=== PATIENT | male | born 1950 | race Caucasian/White ===

== ENCOUNTER → 2017-08-12 12:13 | Outpatient (CLI) | payer MEDICARE, SELFPAY ==
[2017-08-12 12:45] LABS: Add Manual Diff / Slide Review NO; Basophils Percent Auto 1.3 % (0-2); Eosinophils Percent Auto 3.3 % (2-4); Hematocrit 40.3 % (41-53); Hemoglobin 13.6 g/dL (13.5-17.5); Lymphocytes Percent Auto 29.1 % (25-40); Mean Corpuscular HGB Conc 33.7 % (30-36); Mean Corpuscular Hemoglobin 27.3 PG (26-34); Monocytes Percent Auto 5.8 % (3-14); Neutrophils Absolute Auto 4800 /uL (3000-5900); Neutrophils Percent Auto 60.5 % (50-75); Platelet Count 368 X10^3/uL (150-400); Red Blood Cell Count 4.98 X10^6/uL (4.5-5.9); Red Cell Distribution Width 14.4 % (11.6-14.8); White Blood Cell Count 7.9 X10^3/uL (4.5-11.0)
[2017-08-12 13:07] LABS: Rheumatoid Factor < 8.6 IU/mL (<12.0)
[2017-08-12 13:33] LABS: Thyroid Stimulating Hormone 1.96 uIU/mL (0.47-4.68)
[2017-08-12 13:52] LABS: Vitamin B12 289 pg/mL (239-931)
[2017-08-14 11:00] LABS: HLA B27 POSITIVE (Negative)
== END ==
PROVIDERS: Family Provider Nurse Practitioner; Visit Provider Podiatrist
DX: E11.40 Type 2 diabetes mellitus with diabetic neuropathy, unspecified (principal); M19.90 Unspecified osteoarthritis, unspecified site
CPT/HCPCS: 36415; 82607; 84443; 85025; 86430; 86812

== ENCOUNTER 2017-09-30 19:07 | Emergency (ER) | payer MEDICARE, SELFPAY ==
[2017-09-30 19:12] VITALS: BP 147/76; PULSE 81; RESP 18; TEMP 36.8; O2SAT 98
--- NOTE | 2017-09-30 19:38 | ED_ITS ---
HPI - GI Bleed General Chief complaint: GI Bleed Stated complaint: BLOOD IN STOOLS PAIN ON LEFT SIDE LOWER ABD Time Seen by Provider: 09/30/17 19:38 Source: patient Mode of arrival: ambulatory Limitations: no limitations History of Present Illness HPI Narrative: The patient has a history of ulcerative colitis as well as diverticulitis. He developed left-sided abdominal pain 3-4 days ago. Today he developed lower GI bleeding, he had 1 large min prior to arrival here. He has ongoing left lower quadrant pain but no fever or chills. He has had no nausea or vomiting. He was initially assessed at the [facility] by Dr. Diallo. His CBC was relatively normal. He was sent here for additional evaluation for probable diverticulitis and/or lower GI bleed. The patient denies weakness or dizziness. His appetite has been normal. There has been no nausea vomiting with current symptoms. He was last treated for diverticulitis April 2017 with Cipro and Flagyl. He has had colonoscopy since then with no critical findings. Related Data Home Medications Medication Instructions Recorded Confirmed CPAP: CPAP/PAP Full Face Mask #0 01/06/16 glimepiride 2 mg PO QDAY #0 07/10/16 mesalamine [Canasa] SEE INSTRUCTIONS #0 07/10/16 Previous Rx's Medication Instructions Recorded Syringes: Ultra Fine Insulin 0 syr SQ BID #100 ea 11/26/15 Syringe w/Needle CPAP: CPAP/PAP Full Face Mask dev #1 01/06/16 insulin glargine [Lantus U-100 64 unit SQ HS #1 vial 07/13/16 Insulin] mesalamine [Lialda] 1.2 gm PO SEE INSTRUCTIONS #360 tab 07/13/16 pantoprazole 40 mg PO BID #180 tab 08/31/16 hydrochlorothiazide 12.5 mg PO QDAY #90 cap 09/07/16 metformin 0 PO QDAY #225 tab 09/14/16 metoprolol succinate 50 mg PO Q DAY #90 tab 09/30/16 amlodipine 10 mg PO QAM #90 tab 10/12/16 losartan 50 mg PO BID #180 tab 10/12/16 amoxicillin-pot clavulanate 1 tab PO BID #20 tab 09/30/17 [Augmentin] Allergies Allergy/AdvReac Type Severity Reaction Status Date / Time No Known Allergies Allergy Uncoded 09/30/17 19:16 Review of Systems Review of Systems All systems reviewed & are unremarkable except as noted in HPI and below Constitutional Reports as per HPI, Denies chills, Denies fever(s), Denies lethargy and Denies weakness ENT Ears, Nose, Mouth, and Throat: Denies dizziness Cardiovascular Denies chest pain, Denies lightheadedness, Denies palpitations and Denies dyspnea Respiratory Denies cough and Denies dyspnea Gastrointestinal Gastrointestinal: Reports abdominal pain, Reports change in bowel habits, Reports diarrhea, Denies nausea, Denies hematemesis and Reports other (Lower GI bleeding as noted in HPI.) Genitourinary Reports other (No urinary changes.) Musculoskeletal Denies back pain and Denies muscle weakness Integumentary/Breasts Denies pruritus, Denies erythema, Denies rash and Denies wounds Neurologic Denies confusion, Denies dizziness and Denies weakness Psychiatric Denies confusion Endocrine Denies palpitations Hematologic/Lymphatic Denies easy bleeding PFSH Medical History Diverticulitis (Acute) Ulcerative colitis (Acute) Surgical History History of tonsillectomy Family History Brother Age: 69 Heart disease Brother Age: 60 Amputated toe Diabetes mellitus Mother Age: 90 Diabetes mellitus Heart disease Hypertension Social History Smoking Status: Never smoker Exam Initial Vital Signs Initial Vital Signs: Vital Signs Temperature 98.2 F 09/30/17 19:12 Pulse Rate 81 09/30/17 19:12 Respiratory Rate 18 09/30/17 19:12 Blood Pressure 147/76 H 09/30/17 19:12 Pulse Oximetry 98 09/30/17 19:12 Const General: cooperative and well developed Nutritional Appearance: well nourished Orientation: alert, awake, oriented x3 and not confused [facility] Head: normocephalic and atraumatic Nose: external nose normal Mouth: oral mucosae normal, lip normal and moist mucous membranes Throat: posterior oropharynx normal Chest Chest: normal inspection of the chest Resp Effort & Inspection: normal respiratory effort, able to speak in complete sentences, no respiratory distress and no use of accessory muscles Auscultation: clear to auscultation bilaterally, no rales, no rhonchi and no wheezes Cardio Rate: regular rate Rhythm: regular rhythm Heart Sounds: no click, no gallops, no murmurs and no rubs Pulses: normal peripheral pulses GI Inspection: normal to inspection and non-distended Palpation: soft, no hepatosplenomegaly, No pulsatile mass and tender (Tender in the left lower quadrant without guarding, distension or rebound.) Percussion: normal to percussion Auscultation: normal bowel sounds Back/Spine/Pelvis Back: No CVA tenderness Skin General: no rashes or lesions noted, No jaundice and No petechiae Neuro General: alert, oriented x3 and no focal motor deficits Extrem General: no pedal edema and no calf tenderness Course Orders Ordered: ED Orders 09/30/17 20:05 CT abdomen pelvis w con Stat 09/30/17 20:10 Complete Blood Count AUTO DIFF Stat Comprehensive Metabolic Panel Stat Partial Thromboplastin Time Stat Prothrombin Time INR Stat 09/30/17 20:30 Lactate (Lactic Acid) Stat Type and Screen Stat Discontinued Medications Sodium Chloride (Normal Saline 0.9%) 1,000 mls @ 150 mls/hr IV CONT DL Last Infusion: 10/01/17 00:04 Dose: 0 mls/hr Admin: 09/30/17 20:34 Dose: 150 mls/hr Ampicillin Sodium/Sulbactam (Sodium 3 gm/ Sodium Chloride) 100 mls @ 100 mls/ hr IV NOW ONE Stop: 09/30/17 22:10 Last Infusion: 09/30/17 23:38 Dose: 0 mls/hr Admin: 09/30/17 22:33 Dose: 100 mls/hr Ondansetron HCl (Zofran) 4 mg IV NOW ONE Stop: 09/30/17 19:40 Last Admin: 09/30/17 20:34 Dose: 4 mg Pantoprazole Sodium (Protonix) 40 mg IV NOW ONE Stop: 09/30/17 19:40 Last Admin: 09/30/17 20:34 Dose: 40 mg Vital Signs - 8 hr 09/30/17 20:37 09/30/17 22:41 Pulse Rate 74 70 Respiratory Rate 18 17 Blood Pressure [Right Arm] 151/84 H 137/81 H Pulse Oximetry 99 97 MDM - GI Bleed Medical Records Attestation: I reviewed the patient's medical records. Lab Data Attestation: I reviewed the patient's lab results. CT confirms diverticulitis. The patient's pain is [id number], he is afebrile with a normal WBC. His CBC is stable, his blood loss is not clinically significant at this point. He will be treated with Unasyn and discharged on Augmentin. Result diagrams: 09/30/17 20:10 09/30/17 20:10 Lab Results 09/30/17 09/30/17 09/30/17 Range/Units 20:10 20:10 20:10 WBC 9.3 (4.5-11.0) X10^3/uL RBC 4.79 (4.5-5.9) X10^6/uL Hgb 13.2 L (13.5-17.5) g/dL Hct 39.5 L (41-53) % MCV 82.6 (80-100) fL MCH 27.6 (26-34) PG MCHC 33.4 (30-36) % RDW 14.7 (11.6-14.8) % Plt Count 341 (150-400) X10^3/uL Neut % (Auto) 71.2 (50-75) % Lymph % (Auto) 20.4 L (25-40) % Larue % (Auto) 5.3 (3-14) % Eos % (Auto) 2.3 (2-4) % Baso % (Auto) 0.8 (0-2) % Neut # (Auto) 6600 H (6928-6998) /uL PT 10.7 (10.1-12.7) SECONDS INR 1.0 (0.9-1.3) APTT 40 H (26.4-36.2) SECONDS Sodium 137 (137-145) mmol/L Potassium 4.5 (3.4-5.1) mmol/L Chloride 98 (98-107) mmol/L Carbon Dioxide 24 (22-32) mmol/L BUN 19 (9-20) mg/dL Creatinine 1.10 (0.66-1.25) mg/dL Estimated GFR > 60.0 (>60) mL/min BUN/Creatinine Ratio 17.3 (6-22) Glucose 264 H (80-110) mg/dL Lactate (0.7-2.1) mmol/L Calcium 9.5 (8.4-10.2) mg/dL Total Bilirubin 0.4 (0.2-1.3) mg/dL AST 30 (17-59) IU/L ALT 46 (21-72) IU/L Alkaline Phosphatase 70 (38-126) U/L Total Protein 7.9 (6.3-8.2) g/dL Albumin 4.3 (3.5-5.0) g/dL Globulin 3.6 (1.7-4.1) g/dL Albumin/Globulin Ratio 1.2 (1.0-2.8) Blood Type Antibody Screen 09/30/17 09/30/17 Range/Units 20:30 20:30 WBC (4.5-11.0) X10^3/uL RBC (4.5-5.9) X10^6/uL Hgb (13.5-17.5) g/dL Hct (41-53) % MCV (80-100) fL MCH (26-34) PG MCHC (30-36) % RDW (11.6-14.8) % Plt Count (150-400) X10^3/uL Neut % (Auto) (50-75) % Lymph % (Auto) (25-40) % Larue % (Auto) (3-14) % Eos % (Auto) (2-4) % Baso % (Auto) (0-2) % Neut # (Auto) (2418-0075) /uL PT (10.1-12.7) SECONDS INR (0.9-1.3) APTT (26.4-36.2) SECONDS Sodium (137-145) mmol/L Potassium (3.4-5.1) mmol/L Chloride (98-107) mmol/L Carbon Dioxide (22-32) mmol/L BUN (9-20) mg/dL Creatinine (0.66-1.25) mg/dL Estimated GFR (>60) mL/min BUN/Creatinine Ratio (6-22) Glucose (80-110) mg/dL Lactate 3.0 H (0.7-2.1) mmol/L Calcium (8.4-10.2) mg/dL Total Bilirubin (0.2-1.3) mg/dL AST (17-59) IU/L ALT (21-72) IU/L Alkaline Phosphatase (38-126) U/L Total Protein (6.3-8.2) g/dL Albumin (3.5-5.0) g/dL Globulin (1.7-4.1) g/dL Albumin/Globulin Ratio (1.0-2.8) Blood Type O Negative Antibody Screen Negative Discharge Plan Departure Patient Disposition: Home, Self-Care Clinical Impression: Diverticulitis, Acute lower gastrointestinal bleeding Discharge Date/Time: 10/01/17 00:05 Interventions: ED Discharge Assessment Last Done: 10/01/17 00:05 Instructions: DI for Diverticulitis Activity Restrictions/Additional Instructions: Augmentin 2 times daily for 10 days. Drink plenty of fluids, I would recommend a very bland diet for the next few days until your feeling better. Tolerate a little bleeding, but if bleeding is significant you should return for another evaluation. You have to use your judgment. Recheck with your doctor in about 2 weeks. Prescriptions: New amoxicillin-pot clavulanate [Augmentin] 875-125 mg tablet 1 tab PO BID Qty: 20 RF: 0 No Action Syringes: Ultra Fine Insulin Syringe w/Needle SQ BID Qty: 100 RF: 11 CPAP: CPAP/PAP Full Face Mask Qty: 0 RF: 0 CPAP: CPAP/PAP Full Face Mask Qty: 1 RF: 0 glimepiride 2 MG tablet 2 mg PO QDAY Qty: 0 RF: 0 mesalamine [Canasa] 1,000 MG suppository SEE INSTRUCTIONS Qty: 0 RF: 0 insulin glargine [Lantus U-100 Insulin] 100 UNIT/1 ML solution 64 unit SQ HS Qty: 1 RF: PRN mesalamine [Lialda] 1.2 GM tablet,delayed release (DR/EC) 1.2 gm PO SEE INSTRUCTIONS Qty: 360 RF: 3 pantoprazole 40 MG tablet,delayed release (DR/EC) 40 mg PO BID Qty: 180 RF: 3 hydrochlorothiazide 12.5 MG capsule 12.5 mg PO QDAY Qty: 90 RF: 3 metformin 1,000 MG tablet PO QDAY Qty: 225 RF: 0 metoprolol succinate 50 MG tablet extended release 24 hr 50 mg PO Q DAY Qty: 90 RF: 3 losartan 50 MG tablet 50 mg PO BID Qty: 180 RF: 1 amlodipine 10 MG tablet 10 mg PO QAM Qty: 90 RF: 3
--- NOTE | 2017-09-30 20:05 | DI.CT.S_ITS ---
PROCEDURE: CT ABDOMEN PELVIS W CON INDICATIONS: LLQ pain. GI bleed TECHNIQUE: After the administration of oral and intravenous contrast, 5 mm thick sections acquired from the diaphragms to the symphysis. 5 mm thick coronal and sagittal reformats were performed. For radiation dose reduction, the following was used: automated exposure control, adjustment of mA and/or kV according to patient size. COMPARISON: None. FINDINGS: Image quality: Excellent. ABDOMEN: Lung bases: Lung bases are clear of acute opacities. 7 mm subpleural nodule noted in the right lower lobe. 5 mm subpleural nodule noted in the left lower lobe. Heart size is normal. Atherosclerotic calcifications noted in the visualized coronary vasculature. Solid organs: Liver is normal in size and enhancement. Diffuse fatty infiltration of the liver. Punctate calcification noted in the right lobe compatible sequela prior granulomatous disease. Gallbladder is contracted, but within normal limits.. Biliary system is non-dilated. Pancreas enhances normally. Spleen is normal in size and enhancement. No adrenal nodules. Kidneys are normal in size and enhancement, without hydronephrosis. 1.8 cm left renal cyst. Peritoneum and bowel: Small hernia noted. Stomach, small bowel, and colon loops are normal in caliber and wall thickness. Numerous diverticuli are scattered throughout colon. Mild inflammatory changes noted adjacent to the distal left colon and region of diverticuli compatible with diverticulitis. No peridiverticular abscess or free air. Trace free fluid noted in the left paracolic gutter. No free air. The appendix is normal. Nodes and vessels: No retroperitoneal or mesenteric adenopathy. Aorta and inferior vena cava are normal in caliber. Scattered atherosclerotic calcifications are noted in the abdominal and pelvic vasculature. Miscellaneous: No ventral hernias. PELVIS: Genitourinary: Bladder wall thickness is normal. Miscellaneous: No inguinal adenopathy. Small bilateral fat containing inguinal hernias. Bones: No suspicious bony lesions. No vertebral body compression fractures. Spine degenerative disease and facet arthropathy noted. IMPRESSION: 1. Findings consistent with uncomplicated left colon diverticulitis. 2. The appendix is normal. 3. Hepatic steatosis. 4. Atherosclerosis including the visualized coronary vasculature. 5. Bilateral lung nodules. The largest nodule measures 7 mm. Recommend followup imaging based on criteria outlined below. Fleischner Society criteria for SOLID lung nodule followup. Nodule size (mm)Low-risk patientHigh-risk patient?4No follow-up neededFollow-up at 12 mo; if no change, no further follow-up>[id number] CT at 12 mo; if no change, no further follow-up needed.Initial follow-up CT at 6-12 mo, then 18-24 mo if no change. >6-8Initial follow-up CT at 6-12 mo, then 18-24 mo if no change. Initial follow-up CT at 3-6 mo, then 9-12 mo and 24 mo if no change. >8Follow-up CT at 3, 9, 24 mo. Or PET and/or biopsy.Same as for low-risk pts. Dictated by: Anabel Herzog MD, PhD on 09/30/2017 at 21:58 Approved by: Anabel Herzog MD, PhD on 09/30/2017 at 22:05
[2017-09-30 20:21] LABS: Add Manual Diff / Slide Review NO; Basophils Percent Auto 0.8 % (0-2); Eosinophils Percent Auto 2.3 % (2-4); Hematocrit 39.5 % (41-53); Hemoglobin 13.2 g/dL (13.5-17.5); Lymphocytes Percent Auto 20.4 % (25-40); Mean Corpuscular HGB Conc 33.4 % (30-36); Mean Corpuscular Hemoglobin 27.6 PG (26-34); Mean Corpuscular Volume 82.6 fL (80-100); Monocytes Percent Auto 5.3 % (3-14); Neutrophils Absolute Auto 6600 /uL (3000-5900); Neutrophils Percent Auto 71.2 % (50-75); Platelet Count 341 X10^3/uL (150-400); Red Blood Cell Count 4.79 X10^6/uL (4.5-5.9); Red Cell Distribution Width 14.7 % (11.6-14.8); White Blood Cell Count 9.3 X10^3/uL (4.5-11.0)
[2017-09-30 20:27] LABS: Prothrombin Time 10.7 SECONDS (10.1-12.7)
[2017-09-30 20:29] LABS: PTT Partial Thromboplastin Tim 40 SECONDS (26.4-36.2)
[2017-09-30 20:34] LABS: Alanine Aminotransferase 46 IU/L (21-72); Albumin 4.3 g/dL (3.5-5.0); Albumin Globulin Ratio 1.2 (1.0-2.8); Alkaline Phosphatase 70 U/L (38-126); Aspartate Aminotransferase 30 IU/L (17-59); BUN Creatinine Ratio 17.3 (6-22); Bilirubin Total 0.4 mg/dL (0.2-1.3); Blood Urea Nitrogen 19 mg/dL (9-20); Calcium 9.5 mg/dL (8.4-10.2); Carbon Dioxide 24 mmol/L (22-32); Chloride 98 mmol/L (98-107); Estimated Glomerular Filt Rate > 60.0 mL/min (>60); Globulin 3.6 g/dL (1.7-4.1); Glucose 264 mg/dL (80-110); HEMOLYSIS 19 (0-50); Potassium 4.5 mmol/L (3.4-5.1); Sodium 137 mmol/L (137-145); Total Protein 7.9 g/dL (6.3-8.2)
[2017-09-30] MEDS: SODIUM CHLORIDE 0.9% 1,000 ML 150 ML IV (20:34)
[2017-09-30] MEDS: ONDANSETRON 4 MG/2 ML INJ IV (20:34)
[2017-09-30] MEDS: PANTOPRAZOLE 40 MG VIAL IV (20:34)
[2017-09-30 20:37] VITALS: BP 151/84; PULSE 74; RESP 18; O2SAT 99
[2017-09-30] MEDS: AMPICILLIN/SULBACTAM 3 GM 3 GM in SODIUM CHLORIDE 0.9% 100 ML IV (22:33)
[2017-09-30 22:41] VITALS: BP 137/81; PULSE 70; RESP 17; O2SAT 97
[2017-10-01 00:38] LABS: Reflexed Lactate in 2 Hours Y
== END 2017-10-01 00:05 | disposition home or self-care (01) ==
PROVIDERS: Emergency Provider Emergency Medicine; Family Provider Nurse Practitioner
DX: K57.92 Diverticulitis of intestine, part unspecified, without perforation or abscess without bleeding (principal); K92.2 Gastrointestinal hemorrhage, unspecified
CPT/HCPCS: 36591; 74177; 80053; 83605; 85025; 85610; 85730; 86850; 86900; 86901; 96361; 96365; 96375; 99283; 99285; C9113; J0295; J2405; Q9967

== ENCOUNTER → 2018-04-13 10:35 | Outpatient (CLI) | payer MEDICARE, SELFPAY ==
[2018-04-13 11:44] LABS: BUN Creatinine Ratio 13.1 (6-22); Blood Urea Nitrogen 17 mg/dL (9-20); Calcium 9.7 mg/dL (8.4-10.2); Carbon Dioxide 24 mmol/L (22-32); Chloride 99 mmol/L (98-107); Estimated Glomerular Filt Rate 54.9 mL/min (>60); Glucose 224 mg/dL (80-110); HEMOLYSIS < 15 (0-50); Potassium 4.1 mmol/L (3.4-5.1); Sodium 137 mmol/L (137-145)
== END ==
PROVIDERS: Family Provider Nurse Practitioner; PCP Nurse Practitioner; Visit Provider Nurse Practitioner
DX: E11.42 Type 2 diabetes mellitus with diabetic polyneuropathy (principal); Z79.4 Long term (current) use of insulin
CPT/HCPCS: 36415; 80048

== ENCOUNTER 2018-06-01 14:16 | Emergency (ER) | payer MEDICARE, SELFPAY ==
[2018-06-01 14:20] VITALS: BP 152/79; PULSE 58; RESP 16; TEMP 36.9; O2SAT 100
--- NOTE | 2018-06-01 15:54 | ED_ITS ---
HPI - Back Pain/Injury <Lucina Mgcraw PA-C - Last Filed: 06/01/18 21:48> General Chief Complaint: Back Pain/Injury Stated Complaint: pinched nerve in lower back Time Seen by Provider: 06/01/18 15:36 Source: patient Mode of arrival: ambulatory Limitations: no limitations History of Present Illness HPI Narrative: This 67-year-old male with a history of chronic intermittent back pain for 25 years comes in today after acute worsening yesterday. He states that he bent with his arm behind him to use a suppository and pain abruptly worsened, was unable to straighten up, pull up his pants, walk or sit due to not being able to lower himself. [place] he was given a dose of Demerol. He states this did help. He states that pain was severe again this morning. He had to call the ENT is again and was given another dose of Demerol (he is sure this was not Dilaudid), and states that this helped somewhat. He was seen at the clinic, and states they did not do any treatment there, felt he might need imaging. He states he thinks his back pain has gradually been worse for about a month, but denies any new trauma. He states this pain is different in that he has chronic sciatica which can affect either or both legs, however this is more localized in the right posterior hip. He denies any acute weakness in the extremities. He d enies any paresthesia. He denies any inability to urinate or bowel habit changes. No new fever or other new symptoms such as rash. He notes that he did have a shingles vaccine a week ago. Related Data Home Medications Medication Instructions Recorded Confirmed mesalamine [Canasa] 1,000 mg GA BEDTIME #0 07/10/16 06/01/18 CPAP: CPAP/PAP Full Face Mask 1 dev MISCELLANEOUS DIRECTED 06/01/18 06/01/18 Cbd 1 dose MISCELLANEOUS BEDTIME 06/01/18 06/01/18 Lantus U-100 Insulin 74 unit SQ BEDTIME 06/01/18 06/01/18 amlodipine 10 mg PO DAILY 06/01/18 06/01/18 cholecalciferol (vitamin D3) 1,000 unit PO BID 06/01/18 06/01/18 [Vitamin D3] cinnamon bark [Cinnamon] 1,000 mg PO BID 06/01/18 06/01/18 glimepiride 4 mg PO DAILY 06/01/18 06/01/18 hydrochlorothiazide 12.5 mg PO DAILY 06/01/18 06/01/18 insulin lispro [Humalog KwikPen 1 dose SUBCUT TIDWM 06/01/18 06/01/18 Insulin] mesalamine 4.8 g PO QAM 06/01/18 06/01/18 metformin 1,000 mg PO QAM 06/01/18 06/01/18 metformin 500 mg PO QPM 06/01/18 06/01/18 metoclopramide HCl 10 mg PO PRN PRN 06/01/18 06/01/18 metoprolol succinate 50 mg PO DAILY 06/01/18 06/01/18 sildenafil [Viagra] 100 mg PO DAILY PRN MDD 1 06/01/18 06/01/18 Previous Rx's Medication Instructions Recorded Syringes: Ultra Fine Insulin 0 syr SQ BID #100 ea 11/26/15 Syringe w/Needle pantoprazole 40 mg PO BID #180 tab 08/31/16 losartan 50 mg PO BID #180 tab 10/12/16 cyclobenzaprine 10 mg PO Q8H PRN #10 tab 06/01/18 hydrocodone-acetaminophen [[place]] 1 tab PO Q4-6H PRN #10 tab 06/01/18 Allergies Allergy/AdvReac Type Severity Reaction Status Date / Time No Known Allergies Allergy Uncoded 09/30/17 19:16 Review of Systems <Lucina Mcgraw PA-C - Last Filed: 06/01/18 21:48> Review of Systems ROS Unobtainable: All systems reviewed & are unremarkable except as noted in HPI and below PFSH <Lucina Mcgraw PA-C - Last Filed: 06/01/18 21:48> Medical History Diverticulitis (Acute) 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) Diabetes mellitus, insulin-dependent (IDDM or type I) (Chronic) GERD (gastroesophageal reflux disease) (Chronic) HTN (hypertension) (Chronic) Migraines (Chronic) No pertinent family history (Chronic) INES (obstructive sleep apnea) (Chronic) Ulcerative colitis (Chronic) Surgical History No pertinent past surgical history (Chronic) History of tonsillectomy (Resolved) Family History Brother Age: 69 Heart disease Brother Age: 60 Amputated toe Diabetes mellitus Mother Age: 90 Diabetes mellitus Heart disease Hypertension Social History Smoking Status: Never smoker Social History Smoking Status: Never smoker Exam <Lucina Mcgraw PA-C - Last Filed: 06/01/18 21:48> Narrative Exam Narrative: GENERAL APPEARANCE: Patient sitting comfortably, in no distress. PULMONARY: Lungs clear to auscultation bilaterally CV: Regular rhythm regular without murmur, normal S1 and S2, no S3 or S4 MUSCULOSKELETAL: No point tenderness over the lumbar spine. No tenderness over the lower lumbar musculature. Moderate tenderness over the right SI joint. No tenderness over the lateral hip. able to move from supine to sit . Lower extremity strength 5/5 bilateral hip flexors, knee extensors, foot plantar flexion. Negative modified straight leg raise . Negative Amari's test. NEUROLOGIC: Bilateral patellar and Achilles DTRs 2+ DERM: No exanthem Initial Vital Signs Initial Vital Signs: Vital Signs Temperature 98.5 F 06/01/18 14:20 Pulse Rate 58 L 06/01/18 14:20 Respiratory Rate 16 06/01/18 14:20 Blood Pressure 152/79 H 06/01/18 14:20 Pulse Oximetry 100 06/01/18 14:20 <Beau Turpin DO - Last Filed: 06/02/18 07:04> Initial Vital Signs Initial Vital Signs: Vital Signs Temperature 98.5 F 06/01/18 14:20 Pulse Rate 58 L 06/01/18 14:20 Respiratory Rate 16 06/01/18 14:20 Blood Pressure 152/79 H 06/01/18 14:20 Pulse Oximetry 100 06/01/18 14:20 Course <Lucina Mcgraw PA-C - Last Filed: 06/01/18 21:48> Orders Ordered: Discontinued Medications Cyclobenzaprine HCl (Flexeril) 10 mg PO NOW ONE Stop: 06/01/18 16:23 Last Admin: 06/01/18 16:38 Dose: 10 mg Vital Signs - 8 hr 06/01/18 14:20 06/01/18 16:08 06/01/18 17:38 Temperature 98.5 F Pulse Rate 58 L 68 65 Respiratory Rate 16 18 18 Blood Pressure 152/79 H Blood Pressure [Right Arm] 154/71 H 113/63 Pulse Oximetry 100 98 95 06/01/18 17:53 Temperature 98.4 F Pulse Rate 68 Respiratory Rate 17 Blood Pressure 113/63 Blood Pressure [Right Arm] Pulse Oximetry 97 <Beau Turpin DO - Last Filed: 06/02/18 07:04> Orders Ordered: Discontinued Medications Cyclobenzaprine HCl (Flexeril) 10 mg PO NOW ONE Stop: 06/01/18 16:23 Last Admin: 06/01/18 16:38 Dose: 10 mg Vital Signs - 8 hr 06/01/18 14:20 06/01/18 16:08 06/01/18 17:38 Temperature 98.5 F Pulse Rate 58 L 68 65 Respiratory Rate 16 18 18 Blood Pressure 152/79 H Blood Pressure [Right Arm] 154/71 H 113/63 Pulse Oximetry 100 98 95 06/01/18 17:53 Temperature 98.4 F Pulse Rate 68 Respiratory Rate 17 Blood Pressure 113/63 Blood Pressure [Right Arm] Pulse Oximetry 97 MDM - Back Pain/Injury <Lucina Mcgraw PA-C - Last Filed: 06/01/18 21:48> Imaging Data hip: Radiologist's impression: Chart Viewer Diagnostics DATE TYPE STATUS AUTHOR Hx 06/01/18 16:22 Vita Angelo 06/01/18 16:22 Vita nAgelo 09/30/17 20:05 Anabel Herzog Michael E 67, M0 1950 REG ER, ED.LOC - Main ED: R08 102.058kg Back Pain/Injury Search Chart NF - Not included in interaction checking ONSET 02/05/15 02/05/15 02/05/15 Today 16:08 Beau Waldrop 67 M [address] [address] XRay Report Signed Patient: Beau Waldrop EMR#: [id number] : 1950Acct:[id number] Age/Sex: 67 / MDate of Service: 06/01/18 Loc: ED Accession Number: [id number] Procedure: XR hip w pel if done RT 2V Ordering Provider: Lucina Mcgraw P.A-C PROCEDURE: XR HIP W PEL IF DONE RT 2V INDICATIONS: R. SI pain TECHNIQUE: AP pelvis with lateral view(s) of the right hip(s). COMPARISON: None. FINDINGS: Bones: Mild periarticular osteophyte formation at the bilateral hip joints. No fracture. Right sacroiliac joint demonstrates subchondral sclerosis and is ill-defined. Soft tissues: The visualized bowel gas pattern is normal. No suspicious soft tissue calcifications. IMPRESSION: 1. Right-sided sacroiliitis. 2. Mild bilateral hip osteoarthritis. Dictated by: Vita Angelo M.D. on 06/01/2018 at 16:53 Approved by: Vita Angelo M.D. on 06/01/2018 at 16:54 lumbar: Radiologist's impression: Chart Viewer Diagnostics DATE TYPE STATUS AUTHOR Hx 06/01/18 16:22 Vita Angelo 06/01/18 16:22 Vita Angelo 09/30/17 20:05 Anabel Herzog Michael E 67, M0 1950 [facility] ER, ED.LOC - Main ED: R08 102.058kg Back Pain/Injury Search Chart NF - Not included in interaction checking ONSET 02/05/15 02/05/15 02/05/15 Today 16:08 Beau Waldrop 1950 [place] [address] XRay Report Signed Patient: BenjieBeau EMR#: [id number] : 1950Acct:[id number] Age/Sex: 67 / MDate of Service: 06/01/18 Loc: ED Accession Number: [id number] Procedure: XR hip w pel if done RT 2V Ordering Provider: Lucina Mcgraw P.A-C PROCEDURE: XR HIP W PEL IF DONE RT 2V INDICATIONS: R. SI pain TECHNIQUE: AP pelvis with lateral view(s) of the right hip(s). COMPARISON: None. FINDINGS: Bones: Mild periarticular osteophyte formation at the bilateral hip joints. No fracture. Right sacroiliac joint demonstrates subchondral sclerosis and is ill-defined. Soft tissues: The visualized bowel gas pattern is normal. No suspicious soft tissue calcifications. IMPRESSION: 1. Right-sided sacroiliitis. 2. Mild bilateral hip osteoarthritis. Dictated by: Vita Angelo M.D. on 06/01/2018 at 16:53 Approved by: Vita Angelo M.D. on 06/01/2018 at 16:54 Discharge Plan Departure Patient Disposition: Home Clinical Impression: Sacroiliac dysfunction Discharge Date/Time: 06/01/18 17:55 Interventions: ED Discharge Assessment Last Done: 06/01/18 17:53 Instructions: DI for Low Back Pain, DI Sacroiliac Joint Dysfunction Activity Restrictions/Additional Instructions: please return if you have acutely worsening symptoms, i.e. weakness in your extremities, inability to urinate. Otherwise, please take the hydrocodone /acetaminophen as needed since you have not had problems with that in the past. I have also sent in a supply of the muscle relaxant that you had here today that you can use in addition as needed. Please remember that both of these medicines can make you sleepy however, so you should not drive while using them and you need to be aware of this and be careful of falls etc. You may wish to start with 1/2 tab of the muscle relaxant. You may also wish to add topical rubs or try a topical 4% lidocaine patch which is available [id number]. You can put this over the joint and wear for 12 hr daily. Please follow-up with your PCP in the next day or 2 to assess your progress in review your x-ray findings and determine whether to do other testing or a referral. Prescriptions: New cyclobenzaprine 10 mg tablet 10 mg PO Q8H PRN (Reason: muscle spasm) Qty: 10 RF: 0 hydrocodone-acetaminophen [[place]] 5-325 mg tablet 1 tab PO Q4-6H PRN (Reason: acute back pain) Qty: 10 RF: 0 No Action Syringes: Ultra Fine Insulin Syringe w/Needle SQ BID Qty: 100 RF: 11 mesalamine [Canasa] 1,000 MG suppository 1,000 mg GA BEDTIME Qty: 0 RF: 0 pantoprazole 40 MG tablet,delayed release (DR/EC) 40 mg PO BID Qty: 180 RF: 3 losartan 50 MG tablet 50 mg PO BID Qty: 180 RF: 1 amlodipine 10 mg tablet 10 mg PO DAILY RF: 0 metformin 1,000 mg tablet 1,000 mg PO QAM RF: 0 glimepiride 4 mg tablet 4 mg PO DAILY RF: 0 Humalog KwikPen Insulin 100 unit/mL insulin pen 1 dose subcut TIDWM RF: 0 mesalamine 1.2 gram tablet,delayed release (DR/EC) 4.8 g PO QAM RF: 0 Lantus U-100 Insulin 100 UNIT/1 ML solution 74 unit SQ BEDTIME RF: 0 metoprolol succinate 50 MG tablet extended release 24 hr 50 mg PO DAILY RF: 0 hydrochlorothiazide 12.5 MG capsule 12.5 mg PO DAILY RF: 0 sildenafil [Viagra] 100 mg Tablet 100 mg PO DAILY MDD 1 PRN (Reason: Erectile Dysfunction) RF: 0 metformin 1,000 mg tablet 500 mg PO QPM RF: 0 metoclopramide HCl 10 mg Tablet 10 mg PO PRN PRN (Reason: Nausea) RF: 0 cholecalciferol (vitamin D3) [Vitamin D3] 1,000 unit Capsule 1,000 unit PO BID RF: 0 cinnamon bark [Cinnamon] 500 mg Capsule 1,000 mg PO BID RF: 0 Cbd 5 mg 1 dose miscellaneous BEDTIME RF: 0 CPAP: CPAP/PAP Full Face Mask 1 dev miscellaneous DIRECTED RF: 0 Referrals: Beau Diallo [Non-Staff] - <Beau Turpin DO - Last Filed: 06/02/18 07:04> Cosign ED Attending Eugene Attestation: I was available for consultation during this patient's emergency department encounter
[2018-06-01 16:08] VITALS: BP 154/71; PULSE 68; RESP 18; O2SAT 98
--- NOTE | 2018-06-01 16:22 | DI.RAD.S_ITS ---
PROCEDURE: XR LUMBAR SPINE 2-3V INDICATIONS: LBP, acutely worse without trauma TECHNIQUE: 5 views of the lumbar spine were acquired. COMPARISON: None. FINDINGS: Bones: 5 [id number] vertebrae are present. There is mild grade 1 anterolisthesis of L4 on L5. Loss of normal lumbar lordosis. No vertebral body compression fractures. No suspicious bony lesions. Right sacroiliac joint is ill-defined and demonstrates subchondral sclerosis. Multilevel endplate osteophytes. Facet hypertrophy throughout the mid and lower lumbar spine. Soft tissues: Overlying bowel gas pattern is normal. No suspicious soft tissue calcifications. IMPRESSION: 1. Multilevel degenerative disc and facet disease. 2. Right sacroiliitis. 3. No acute fracture. No osseous lesion. If symptoms and/or clinical suspicion for pathology persist, further assessment with repeat, or advanced imaging (e.g., CT, MRI, or bone scan) may be helpful for further assessment. Dictated by: Vita Angelo M.D. on 06/01/2018 at 16:54 Approved by: Vita Angelo M.D. on 06/01/2018 at 16:55
--- NOTE | 2018-06-01 16:22 | DI.RAD.S_ITS ---
PROCEDURE: XR HIP W PEL IF DONE RT 2V INDICATIONS: R. SI pain TECHNIQUE: AP pelvis with lateral view(s) of the right hip(s). COMPARISON: None. FINDINGS: Bones: Mild periarticular osteophyte formation at the bilateral hip joints. No fracture. Right sacroiliac joint demonstrates subchondral sclerosis and is ill-defined. Soft tissues: The visualized bowel gas pattern is normal. No suspicious soft tissue calcifications. IMPRESSION: 1. Right-sided sacroiliitis. 2. Mild bilateral hip osteoarthritis. Dictated by: Vita Angelo M.D. on 06/01/2018 at 16:53 Approved by: Vita Angelo M.D. on 06/01/2018 at 16:54
[2018-06-01] MEDS: CYCLOBENZAPRINE 10 MG TABLET PO (16:38)
[2018-06-01 17:38] VITALS: BP 113/63; PULSE 65; RESP 18; O2SAT 95
[2018-06-01 17:53] VITALS: BP 113/63; PULSE 68; RESP 17; TEMP 36.9; O2SAT 97
== END 2018-06-01 17:55 | disposition home or self-care (01) ==
PROVIDERS: Emergency Provider Internal Medicine; PCP Nurse Practitioner
DX: M53.3 Sacrococcygeal disorders, not elsewhere classified (principal)
CPT/HCPCS: 72100; 73502; 99282; 99283